=== PATIENT | female | born 1990 | race Caucasian/White ===

== ENCOUNTER 2019-10-30 19:06 | Emergency (ER) | payer OTHER ==
[2019-10-30 19:11] VITALS: BP 114/75
[2019-10-30] MEDS ORDERED: ACETAMINOPHEN 325 MG TABLET PO ONE (19:32)
--- NOTE | 2019-10-30 20:17 | RADIOLOGY REPORT (SQ) ---
CLINICAL INDICATION: Knee pain. . TECHNIQUE: 4 view(s) were obtained of the right knee. COMPARISON: None. FINDINGS: No acute displaced fracture is identified of the knee. Alignment appears anatomic. Joint spaces are within normal limits for age. Small joint effusion. Surrounding soft tissues are unremarkable. Remote postsurgical change IMPRESSION: No evidence of acute displaced fracture of the knee. Old postsurgical change.
--- NOTE | 2019-10-30 20:43 | ER Document Report ---
HPI - HPI Patient complains to provider of: Right knee pain Time Seen by Provider: 10/30/19 19:34 Pain Level: 3 Context: 29-year-old female with no previous medical problems presents to the emergency room complaining of right knee pain for the past week. States she had full reconstruction surgery approximately 1 year ago for a dislocated patella and multiple ligament injuries to her right knee. She denies any new trauma or injury. States she is taking gabapentin as directed without relief. Drove self to the emergency room. States she was just discharged from the and is waiting to be assigned a new primary care physician. Denies any chance of . Associated Symptoms: None Exacerbated by: Movement, Walking Relieved by: Denies Similar symptoms previously: Yes Recently seen / treated by doctor: No - ROS ROS below otherwise negative: Yes - NEURO Neurology: DENIES: Weakness - REPRODUCTIVE LMP: murina Reproductive: DENIES: : - MUSCULOSKELETAL Musculoskeletal: REPORTS: Extremity pain - DERM Skin Color: Normal, [place], Pale Skin Problems: None Past Medical History - General Information source: Patient - Social History Smoking Status: Never Smoker Frequency of alcohol use: None Drug Abuse: None Family History: Reviewed & Not Pertinent Patient has homicidal ideation: No Vertical Provider Document - CONSTITUTIONAL Agree With Documented VS: Yes Exam Limitations: No Limitations General Appearance: Mild Distress - INFECTION CONTROL TRAVEL OUTSIDE OF THE [place] IN LAST 30 DAYS: No - HEENT HEENT: Atraumatic, Normocephalic - NECK Neck: Normal Inspection, Supple - RESPIRATORY Respiratory: Breath Sounds Normal, No Respiratory Distress, Chest Non-Tender. negative: Rales, Rhonchi, Wheezing - CARDIOVASCULAR Cardiovascular: Regular Rate, Regular Rhythm, No Murmur - BACK Back: Normal Inspection - MUSCULOSKELETAL/EXTREMETIES Musculoskeletal/Extremeties: Tender, No Edema Notes: Right knee is tender over the patella. Painful range of motion with flexion, extension, internal and external rotation to the right knee. Positive ballottement. No obvious deformity noted. No erythema, not warm or tender to palpation. - NEURO Level of Consciousness: Awake, Alert, Appropriate Motor/Sensory: No Motor Deficit, No Sensory Deficit Notes: Patient is ambulatory with limping noted to right leg. Course - Re-evaluation Re-evalutation: 10/30/19 20:42 Patient is resting comfortably with minimal improvement in pain. Counseled on need to follow-up outpatient with an orthopedist. On-call physician was provided. Did do [place] there is no chronic use of controlled substances were noted. Will discharge home on tramadol. Patient was given strict return to the emergency room guidelines. Return for any new or worsening symptoms. All questions were answered. Patient verbalized understanding and agrees with plan of care. - Vital Signs Vital signs: Temp Pulse Resp BP Pulse Ox 98.5 F 80 16 114/75 98 10/30/19 19:19 10/30/19 19:11 10/30/19 19:11 10/30/19 19:11 10/30/19 19:11 - Diagnostic Test Radiology reviewed: Reports reviewed Discharge - Discharge Clinical Impression: Effusion, right knee Condition: Stable Disposition: HOME, SELF-CARE Instructions: Ice & Elevation ([facility]), Knee Effusion ([facility]), Oral Narcotic Medication ([facility]) Additional Instructions: Rest, ice, elevate right knee. Medications as prescribed. Follow-up with orthopedics as discussed. Return for any new or worsening symptoms. Prescriptions: Tramadol HCl [Ultram 50 mg Tablet] 50 mg PO Q4HP PRN #12 tab PRN Reason: Tramadol HCl [Ultram 50 mg Tablet] 50 mg PO Q4HP PRN #12 tab PRN Reason:
== END 2019-10-30 21:04 | disposition home or self-care (01) ==
LOC: ER 19:06
DX: M25.461 Effusion, right knee (principal); M25.561 Pain in right knee
CPT/HCPCS: 99283